=== PATIENT | male | born 2000 | race Caucasian/White ===

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

== ENCOUNTER 2020-02-25 08:47 | Emergency (ER) | payer OTHER, MEDICAID ==
[~2020-02-25] VITALS: Ht 172.7 cm; Wt 69.9 kg
[2020-02-25 08:58] VITALS: BP 139/71
== END 2020-02-25 09:58 | disposition home or self-care (01) ==
LOC: ER 08:47
DX: S83.92XA Sprain of unspecified site of left knee, initial encounter (principal); V43.52XA Car driver injured in collision with other type car in traffic accident, initial encounter; Y93.I9 Activity, other involving external motion; Y92.410 Unspecified street and highway as the place of occurrence of the external cause; Y99.8 Other external cause status
CPT/HCPCS: 73562

== ENCOUNTER 2020-02-28 11:47 | Emergency (ER) | payer MEDICAID ==
[~2020-02-28] VITALS: Ht 177.8 cm; Wt 71.7 kg
[2020-02-28 12:27] VITALS: BP 108/60
== END 2020-02-28 16:52 | disposition left against medical advice (07) ==
LOC: ER 11:47
DX: M25.562 Pain in left knee (principal); Z53.21 Procedure and treatment not carried out due to patient leaving prior to being seen by health care provider
CPT/HCPCS: 73562